=== PATIENT | female | born 1990 | race Caucasian/White ===

== ENCOUNTER 2020-04-06 14:00 | Inpatient (IN) | payer OTHER, SELFPAY ==
[2020-04-06] VITALS (20 sets, daily range): BP systolic 104–155; BP diastolic 49–93; PULSE 50–71; RESP 16–18; TEMP 35.7–36.7; O2SAT 96–99; BMI 41.8
[2020-04-06 12:48] LABS: Hematocrit 37.9 % (37-47); Hemoglobin 12.6 g/dL (12.0-15.0); Mean Corp Hgb Conc 33.2 g/dL (32-36); Mean Corpuscular Hgb 30.2 pg (27.0-32.0); Mean Corpuscular Volume 90.9 fL (81-99); Mean Platelet Vol. 12.4 fl (6.2-12.0); Platelet Count 177 K/mm3 (150-450); RBC Distribution Width CV 13.6 % (11.6-14.6); RBC Distribution Width SD 45.6 fl (35.1-43.9); Red Blood Count 4.17 M/mm3 (4.2-5.4); White Blood Count 10.2 K/mm3 (4.4-11.0)
[2020-04-06 13:11] LABS: Protein, Urine (Random) 90.7 mg/dL (<11.9); Protein:Creat Ratio 1422 mg/g CRE (0-200)
[2020-04-06 13:13] LABS: AST(SGOT) 15 U/L (15-37); Alanine Aminotransfer ALT/SGPT 15 U/L (13-56); Creatinine, Serum 0.61 mg/dL (0.55-1.02); EST Glomerular Filtration Rate 122 mL/min (>60); Est Glom Filt Rate - Afr Amer 148 mL/min (>60); Estimated Creatinine Clearance 121.35 ml/min; Uric Acid 5.8 mg/dL (2.6-6.0)
[2020-04-06] MEDS: Lactated Ringers 1,000 ML 50 ML IV (14:45)
[2020-04-06] MEDS: Betamethasone/Betamethasone 30 MG/5 ML Vial 12 MG IM (15:04)
[2020-04-06 15:05] LABS: Group B Strep DNA By PCR POSITIVE (Negative); Probe Check PASS
[2020-04-06] MEDS: Oxytocin 30 units/NS 500 ml 30 UNITS/500 ML IV.SOLN IV (15:58)
[2020-04-06] MEDS: Lactated Ringers 500 ML 999 ML IV (16:10)
--- NOTE | 2020-04-06 16:40 | PCM.HP.OB ---
History Date of Admission: 05/04/20 History of this : This is a 29 year-old, G [], P [], at 36 weeks gestational age. Allergies doxycycline Allergy (Verified 04/06/20 12:30) Rash Sulfa (Sulfonamide Antibiotics) Adverse Reaction (Verified 04/06/20 12:30) PT UNSURE OF REACTION Home Medications: Home Medications Vits [Prenatabs FA ] 1 tab PO DAILY 04/06/20 Smoking Status: Former smoker Alcohol: None Substance Use Type: Anxiety Medications, Sleep Aides Number of Fetus(es): 1 NST - FHR Rate Baby A Baseline: 125 Variability:: Minimal, Moderate Decelerations:: Variable, Prolonged Uterine Activity:: Irregular History Past Pregnancies: Past Pregnancies Delivery Date Name GA/ Weeks Outcome Route Wt Infant Sex Labor Length Anesthesia Delivery Location Provider FOB Labs: See [facility] H&P Physical Exam Vitals: Vital Signs Temp Pulse BP Pulse Ox 98.0 F 63 132/74 H 98 04/06/20 16:00 04/06/20 16:00 04/06/20 16:00 04/06/20 12:32 General: Alert, Oriented x3 Abdomen: Soft, Non Tender, Non-Distended, Gravid Extremities:: No tenderness/swelling Neurological: Cranial nerves II-XII grossly intact STUDIO MODEL: Normal external genitalia Estimated gestational size: Small for gestational age Presentation: Cephalic Cervix Dilation (cm): 4 Station: -2 Effacement (%): 70 Assessment/Plan This is a 29 year-old, , at 36 weeks gestational age. Admit to L&D Non reassuring heart tracing - patient was initially admitted for induction of labor. Pitocin was started and patient had another prolonged deceleration followed by an additional deceleration. Patient has had 2 prolonged decelerations and other decelerations that are either late or variable. Discussed R/B/A of MOD and recommend a primary as fetus is not tolerating labor. All questions answered and patient agrees to proceed with primary . GBS positive COVID negative
[2020-04-06] MEDS: Sodium Citrate/Citric Acid 30 ML UDC PO (16:44)
[2020-04-06] MEDS: Cefazolin 2 GM in 0.9% Normal Saline 100 ML IV (16:50)
--- NOTE | 2020-04-06 17:58 | OP.PCM_ITS ---
Report of Operation Date of Procedure: 04/06/20 Surgery/Procedure Performed:: Primary low transverse section Description of Surgical Findings:: Normal maternal uterus & adnexa international sourcing manager: Virginia Cates Delivery Classification: ARBEN Final CRYS: 05/04/20 Gestational age: 36 Weeks and 0 Days Type of Anesthesia:: Spinal Date of Procedure: 04/06/20 Pre-Operative Diagnosis: (1) Inability of fetus to tolerate labor (2) Small for gestational age Post-Operative Diagnosis: Same Indications: See H&P Indications for : Nonreassuring Status Description of Procedure: Patient taken to OR where spinal anesthesia was placed. She was prepped and draped in the normal sterile fashion in a dorsal supine position with a leftward tilt. After ensuring adequacy of anesthesia the Pfannensteil skin incision was made and carried through to the underlying fascia with a scalpel. The fascia was incised in the midline and carried laterally with the Bills scissors. The rectus muscles were in the midline and the peritoneum was entered bluntly. The bladder flap was dissected down carefully with the Metzenbaum scissors and blunt dissection. The uterus was incised in a transverse fashion and then incision extended with cephalocaudad traction. The fetus was vertex and the head was elevated to the uterine incision. With fundal pressure the head delivered. head was gently guided to allow delivery of anterior and posterior shoulders. No excess traction placed on head. Body delivered and 3VC clamped & cut in slightly delayed fashion. Then the was handed off to the waiting RN. The placenta was delivered with gentle traction and fundal massage and the uterus was exteriorized and cleared of all clots and debris. The uterine incision was closed with 1 vicryl suture in a running locked fashion. The bovie was used to further obtain further hemostasis of the uterine incision. A second imbricating layer of monocryl was placed. The uterus was returned to the peritoneal cavity. The pelvis was irrigated & then cleared of all clots and debris. The uterine incision was reexamined and found to be hemostatic. Some lucas was placed over the uterine incision due to the denuded areas. The fascia was closed with looped PDS suture in a running standard fashion. The subcutaneous tissue was examined & any bleeding bovie cauterized. The subcutaneous tissue was reapproximated with plain gut suture. The skin was closed in a subcuticular fashion by the HEMATOLOGY ONCOLOGY CONSULTANT with me present in the labor and delivery suite. I performed the remainder of the procedure w/ assistance. Amniotic Membrane Rupture Type: Artificial Amniotic Fluid Description: Clear Placenta Disposition: [facility] Drain: Perkins to straight drain Fluids Replaced: 1,000ml Cord Entanglement: Around neck x 1, loose Cord Vessel Description: 2 Vessels - cord was thin with a tight knot Esitmated Blood Loss (ml): 750ml Gender: Male - Klein (1 minute): 8 (5 minute): 9 Delayed cord clamping: Yes Antibiotic Given: Ancef 2 grams IV x1 Complications: None - Admit VTE Documentation VTE Present on Admission: No VTE Mechan Device Prophylaxis: SCD's VTE Pharm Prophylaxis ordered?: Yes
[2020-04-06] MEDS: Oxytocin 30 units/NS 500 ml 30 UNITS/500 ML IV.SOLN 167 UNITS IV (18:15)
[2020-04-06] MEDS: Lactated Ringers 1,000 ML 100 ML IV (21:32)
[2020-04-07] VITALS (13 sets, daily range): BP systolic 119–137; BP diastolic 67–85; PULSE 50–108; RESP 14–16; TEMP 35.9–37.1; O2SAT 96–99
[2020-04-07] MEDS: Acetaminophen 500 MG Tablet 1000 MG PO ×4 (00:27→17:52)
[2020-04-07] MEDS: Ketorolac 30 MG/ML Syringe IV ×4 (00:28→17:52)
[2020-04-07] MEDS: Enoxaparin 40 MG/0.4 ML Syringe SC (05:24)
[2020-04-07 05:51] LABS: Hematocrit 34.6 % (37-47); Hemoglobin 11.5 g/dL (12.0-15.0); Mean Corp Hgb Conc 33.2 g/dL (32-36); Mean Corpuscular Hgb 30.7 pg (27.0-32.0); Mean Corpuscular Volume 92.5 fL (81-99); Mean Platelet Vol. 12.6 fl (6.2-12.0); Platelet Count 166 K/mm3 (150-450); RBC Distribution Width CV 13.5 % (11.6-14.6); RBC Distribution Width SD 45.7 fl (35.1-43.9); Red Blood Count 3.74 M/mm3 (4.2-5.4); White Blood Count 13.8 K/mm3 (4.4-11.0)
--- NOTE | 2020-04-07 08:53 | PCM.PN.OB ---
Subjective: pain well controlled, average lochia. No N/V. Ambulating and urinating w/o difficulty - Physical Exam Vitals/I&O's: Vital Signs Temp Pulse Resp BP Pulse Ox 97.0 F L 50 L 16 119/68 99 04/07/20 07:48 04/07/20 07:48 04/07/20 07:48 04/07/20 07:48 04/07/20 07:48 Oxygen Delivery Method Room Air Weight: 114 kg Body Mass Index (BMI) 41.8 Intake and Output for Last 24 Hours 04/05/20 04/06/20 04/07/20 23:59 23:59 23:59 Intake Total 2419.30 / 2419.30 2300 / 2300 Output Total 550 / 550 650 / 650 Balance 1869.30 / 1869.30 1650 / 1650 General: Alert, Cooperative, No apparent distress Abdomen: Soft, Tender - appropriately Skin: Incision - bandage is clean, dry and intact Microbiology Past 72 Hours 04/06/20 15:05 Mucosa - Nose - Final Laboratory Results 04/06/20 12:38: WBC 10.2, RBC 4.17 L, Hgb 12.6, Hct 37.9, MCV 90.9, MCH 30.2, MCHC 33.2, RDW Std Deviation 45.6 H, RDW Coeff of Keyla 13.6, Plt Count 177, MPV 12.4 H 04/06/20 12:38: Creatinine 0.61, Estim Creat Clear Calc 121.35, Est GFR (MDRD) Af Amer 148, Est GFR (MDRD) Non-Af 122, Uric Acid 5.8, AST 15, ALT 15 04/06/20 12:55: U Random Total Protein 90.7 H, Urine Creatinine 63.80, Protein/Creatinin Ratio 1422 H 04/06/20 13:35: Group B Strep DNA POSITIVE H, Specimen Comment Not Reportable 04/06/20 14:00: Blood Type O NEGATIVE, Antibody Screen TNP 04/06/20 14:00: Antibody Screen NEGATIVE 04/06/20 23:40: Screen NEGATIVE, Baby's Blood Type A POSITIVE, Baby's AMARJIT NEGATIVE 04/07/20 05:30: WBC 13.8 H, RBC 3.74 L, Hgb 11.5 L, Hct 34.6 L, MCV 92.5, MCH 30.7, MCHC 33.2, RDW Std Deviation 45.7 H, RDW Coeff of Keyla 13.5, Plt Count 166, MPV 12.6 H Current Medications Acetaminophen (Acetaminophen 500 Mg Tablet) 1,000 mg PO Q6 [facility] Last Admin: 04/07/20 06:38 Dose: 1,000 mg Documented by: Bisacodyl (Bisacodyl 10 Mg Suppository) 10 mg RECTAL UD PRN PRN Reason: If no BM Diphenhydramine HCl (Diphenhydramine 25 Mg Capsule) 25 mg PO Q6H PRN PRN PRN Reason: ITCHING Stop: 04/07/20 18:02 Enoxaparin Sodium (Enoxaparin 40 Mg/0.4 Ml Syringe) 40 mg SC DAILY [facility] Last Admin: 04/07/20 05:24 Dose: 40 mg Documented by: Hydrocortisone (Hydrocortisone 2.5% Crm) 1 applic TOPICAL TID PRN PRN; Protocol PRN Reason: Discomfort Lactated Ringer's () 1,000 mls @ 100 mls/hr IV .Q10H [facility] Last Admin: 04/07/20 06:19 Dose: Not Given Documented by: Ibuprofen (Ibuprofen 600 Mg Tablet) 600 mg PO Q6 [facility] Ketorolac Tromethamine (Ketorolac 30 Mg/Ml Syringe) 30 mg IV Q6 [facility] Stop: 04/07/20 18:01 Last Admin: 04/07/20 06:37 Dose: 30 mg Documented by: Methylergonovine Maleate (Methylergonovine 0.2 Mg/Ml Ampul) 0.2 mg IM X1 PRN PRN Reason: Uterine Atony Nalbuphine HCl (Nalbuphine 10 Mg/Ml Ampul) 5 mg IV Q3H PRN PRN PRN Reason: ITCHING Stop: 04/07/20 18:02 Naloxone HCl (Naloxone 0.4 Mg/Ml Syringe) 0.02 mg IV Q1M PRN PRN Reason: RR <10 and pt unresponsive Ondansetron HCl (Ondansetron 4 Mg/2 Ml Vial) 4 mg IV Q4H PRN PRN PRN Reason: Nausea Oxycodone HCl (Oxycodone 5 Mg Tablet) 5 - 10 mg PO Q4H PRN PRN PRN Reason: Pain Score 4-10 Prochlorperazine Edisylate (Prochlorperazine 10 Mg/2 Ml Vial) 10 mg IV Q6H PRN PRN PRN Reason: NAUSEA Senna/Docusate Sodium (Senna/Docusate Sodium 1 Tablet) 0 tablet PO DAILY [facility] Simethicone (Simethicone 80 Mg Tablet) 80 mg PO PCHS PRN PRN Reason: Indigestion/stomach pain Sodium Chloride (0.9% Saline Lock 10 Ml Syringe) 5 - 15 ml IV UD PRN PRN Reason: SALINE FLUSH Medical Necessity - Tobacco Use Smoking Status: Former smoker Assessment/Plan POD#1 s/p primary c/s for intolerance of labor, prolonged decelerations, IUGR in SCN, doing well patient w/ mild preeclampsia, BP stable, monitor for now CBC stable, minimal drop in H/H appropriate for blood loss during surgery
[2020-04-07] MEDS: Senna/Docusate Sodium 1 Tablet PO (10:12)
[2020-04-07] MEDS: 0.9% Saline Lock 10 ML Syringe IV ×2 (11:49→17:52)
--- NOTE | 2020-04-07 20:14 | NURSING ---
pt and significant other nurses at [facility], CPR certified, declined refresher course using Ipad
[2020-04-08] MEDS: Ibuprofen 600 MG Tablet PO ×4 (00:28→18:36)
[2020-04-08] MEDS: Acetaminophen 500 MG Tablet 1000 MG PO ×4 (00:29→18:34)
[2020-04-08 00:31] VITALS: BP 124/70; PULSE 76; RESP 16; TEMP 37.4
[2020-04-08 06:40] VITALS: BP 132/71; PULSE 68; RESP 16; TEMP 37.3
[2020-04-08 10:22] VITALS: BP 143/80; PULSE 66; RESP 14; TEMP 36.6
[2020-04-08] MEDS: Senna/Docusate Sodium 1 Tablet PO (10:26)
[2020-04-08] MEDS: Enoxaparin 40 MG/0.4 ML Syringe SC (10:27)
--- NOTE | 2020-04-08 11:40 | PCM.PN.OB ---
Subjective: pain well controlled, average lochia. + Bm. Kelle. regular diet - Physical Exam Vitals/I&O's: Vital Signs Temp Pulse Resp BP Pulse Ox 97.9 F 66 14 143/80 H 96 04/08/20 10:22 04/08/20 10:22 04/08/20 10:22 04/08/20 10:22 04/07/20 19:45 Oxygen Delivery Method Room Air Weight: 114 kg Body Mass Index (BMI) 41.8 Intake and Output for Last 24 Hours 04/06/20 04/07/20 04/08/20 23:59 23:59 23:59 Intake Total 2419.30 / 2419.30 2798.33 / 2798.33 Output Total 550 / 550 900 / 900 Balance 1869.30 / 1869.30 1898.33 / 1898.33 General: Alert, Cooperative, No apparent distress Abdomen: Soft, Non-Distended, Distended - mildly, softly, Tender - appropriately Extremities: Edema - 1+ Skin: Incision - bandage clean, dry and intact Microbiology Past 72 Hours 04/06/20 15:05 Mucosa - Nose - Final Current Medications Acetaminophen (Acetaminophen 500 Mg Tablet) 1,000 mg PO Q6 [facility] Last Admin: 04/08/20 06:39 Dose: 1,000 mg Documented by: Bisacodyl (Bisacodyl 10 Mg Suppository) 10 mg RECTAL UD PRN PRN Reason: If no BM Enoxaparin Sodium (Enoxaparin 40 Mg/0.4 Ml Syringe) 40 mg SC DAILY [facility] Last Admin: 04/08/20 10:27 Dose: 40 mg Documented by: Hydrocortisone (Hydrocortisone 2.5% Crm) 1 applic TOPICAL TID PRN PRN; Protocol PRN Reason: Discomfort Ibuprofen (Ibuprofen 600 Mg Tablet) 600 mg PO Q6 [facility] Last Admin: 04/08/20 06:38 Dose: 600 mg Documented by: Methylergonovine Maleate (Methylergonovine 0.2 Mg/Ml Ampul) 0.2 mg IM X1 PRN PRN Reason: Uterine Atony Naloxone HCl (Naloxone 0.4 Mg/Ml Syringe) 0.02 mg IV Q1M PRN PRN Reason: RR <10 and pt unresponsive Ondansetron HCl (Ondansetron 4 Mg/2 Ml Vial) 4 mg IV Q4H PRN PRN PRN Reason: Nausea Oxycodone HCl (Oxycodone 5 Mg Tablet) 5 - 10 mg PO Q4H PRN PRN PRN Reason: Pain Score 4-10 Prochlorperazine Edisylate (Prochlorperazine 10 Mg/2 Ml Vial) 10 mg IV Q6H PRN PRN PRN Reason: NAUSEA Senna/Docusate Sodium (Senna/Docusate Sodium 1 Tablet) 0 tablet PO DAILY [facility] Last Admin: 04/08/20 10:26 Dose: 1 tablet Documented by: Simethicone (Simethicone 80 Mg Tablet) 80 mg PO PCHS PRN PRN Reason: Indigestion/stomach pain Sodium Chloride (0.9% Saline Lock 10 Ml Syringe) 5 - 15 ml IV UD PRN PRN Reason: SALINE FLUSH Last Admin: 04/07/20 17:52 Dose: 10 ml Documented by: Medical Necessity - Tobacco Use Smoking Status: Former smoker Assessment/Plan POD#2 routine care average lochia monitor BPs in SCN and doing well
[2020-04-08 16:00] VITALS: BP 130/66; PULSE 70; RESP 14; TEMP 36.4
[2020-04-08 19:50] VITALS: BP 147/85; PULSE 69; RESP 16; TEMP 36.3; O2SAT 99
[2020-04-09] MEDS: Acetaminophen 500 MG Tablet 1000 MG PO ×4 (00:37→18:41)
[2020-04-09] MEDS: Ibuprofen 600 MG Tablet PO ×4 (00:37→18:41)
--- NOTE | 2020-04-09 01:59 | NURSING ---
Daylight saving times end
[2020-04-09 02:15] VITALS: BP 143/89; PULSE 55; RESP 16; TEMP 36.4; O2SAT 97
[2020-04-09 07:20] VITALS: BP 154/91; PULSE 54; RESP 18; TEMP 36.2
[2020-04-09] MEDS: Senna/Docusate Sodium 1 Tablet PO (10:01)
[2020-04-09] MEDS: Enoxaparin 40 MG/0.4 ML Syringe SC (10:01)
[2020-04-09 14:00] VITALS: BP 148/72; PULSE 71; RESP 18; TEMP 36.3
--- NOTE | 2020-04-09 15:00 | PCM.PN.OB ---
Subjective: Pain well controlled, average lochia, no N/V. +Flatus, +BM - Physical Exam Vitals/I&O's: Vital Signs Temp Pulse Resp BP Pulse Ox 97.3 F L 71 18 148/72 H 97 04/09/20 14:00 04/09/20 14:00 04/09/20 14:00 04/09/20 14:00 04/09/20 02:15 Oxygen Delivery Method Room Air Weight: 114 kg Body Mass Index (BMI) 41.8 Intake and Output for Last 24 Hours 04/07/20 04/08/20 04/09/20 23:59 23:59 22:59 Intake Total 2798.33 / 2798.33 Output Total 900 / 900 Balance 1898.33 / 1898.33 General: Alert, Cooperative, No apparent distress Abdomen: Soft, Non-Distended, Tender - appropriately Extremities: Edema - 1+ Skin: Incision - bandage clean, dry and intact Microbiology Past 72 Hours 04/06/20 13:35 Genital vaginal Group B Streptococcus Culture - Preliminary Streptococcus agalactiae (B) 04/06/20 15:05 Mucosa - Nose - Final Current Medications Acetaminophen (Acetaminophen 500 Mg Tablet) 1,000 mg PO Q6 [facility] Last Admin: 04/09/20 12:28 Dose: 1,000 mg Documented by: Bisacodyl (Bisacodyl 10 Mg Suppository) 10 mg RECTAL UD PRN PRN Reason: If no BM Enoxaparin Sodium (Enoxaparin 40 Mg/0.4 Ml Syringe) 40 mg SC DAILY [facility] Last Admin: 04/09/20 10:01 Dose: 40 mg Documented by: Hydrocortisone (Hydrocortisone 2.5% Crm) 1 applic TOPICAL TID PRN PRN; Protocol PRN Reason: Discomfort Ibuprofen (Ibuprofen 600 Mg Tablet) 600 mg PO Q6 [facility] Last Admin: 04/09/20 12:29 Dose: 600 mg Documented by: Methylergonovine Maleate (Methylergonovine 0.2 Mg/Ml Ampul) 0.2 mg IM X1 PRN PRN Reason: Uterine Atony Naloxone HCl (Naloxone 0.4 Mg/Ml Syringe) 0.02 mg IV Q1M PRN PRN Reason: RR <10 and pt unresponsive Ondansetron HCl (Ondansetron 4 Mg/2 Ml Vial) 4 mg IV Q4H PRN PRN PRN Reason: Nausea Oxycodone HCl (Oxycodone 5 Mg Tablet) 5 - 10 mg PO Q4H PRN PRN PRN Reason: Pain Score 4-10 Prochlorperazine Edisylate (Prochlorperazine 10 Mg/2 Ml Vial) 10 mg IV Q6H PRN PRN PRN Reason: NAUSEA Senna/Docusate Sodium (Senna/Docusate Sodium 1 Tablet) 0 tablet PO DAILY [facility] Last Admin: 04/09/20 10:01 Dose: 1 tablet Documented by: Simethicone (Simethicone 80 Mg Tablet) 80 mg PO PCHS PRN PRN Reason: Indigestion/stomach pain Sodium Chloride (0.9% Saline Lock 10 Ml Syringe) 5 - 15 ml IV UD PRN PRN Reason: SALINE FLUSH Last Admin: 04/07/20 17:52 Dose: 10 ml Documented by: Medical Necessity - Tobacco Use Smoking Status: Former smoker Assessment/Plan POD#3 routine care in SCN and doing well cont. to monitor BP
[2020-04-09 21:00] VITALS: BP 133/69; PULSE 69; RESP 14; TEMP 36.8; O2SAT 96
[2020-04-09 23:05] VITALS: BP 144/63
[2020-04-10] MEDS: Ibuprofen 600 MG Tablet PO ×3 (01:34→13:21)
[2020-04-10] MEDS: Acetaminophen 500 MG Tablet 1000 MG PO ×3 (01:34→13:20)
[2020-04-10 01:38] VITALS: BP 148/85; PULSE 57; RESP 18; TEMP 36.6; O2SAT 97
[2020-04-10 07:55] VITALS: BP 179/84; PULSE 84; RESP 16; TEMP 36.5; O2SAT 100
[2020-04-10 08:00] VITALS: BP 136/75
[2020-04-10] MEDS: Enoxaparin 40 MG/0.4 ML Syringe SC (10:38)
[2020-04-10] MEDS: Senna/Docusate Sodium 1 Tablet PO (10:38)
[2020-04-10 13:45] VITALS: BP 141/81; PULSE 81; RESP 16; TEMP 36.5
--- NOTE | 2020-04-10 17:39 | PCM.PN.OB ---
Subjective: Doing well per patient and nursing staff. Ambulating and taking PO without difficulty. Voiding and passing flatus. Lochia normal. Pumping breastmilk. Baby in SCN and being transferred to [facility] for low PLTs. Denies any headaches, visual changes, chest pain, SOB, or increased pain. - Physical Exam Vitals/I&O's: Vital Signs Temp Pulse Resp BP Pulse Ox 97.7 F L 81 16 141/81 H 100 04/10/20 13:45 04/10/20 13:45 04/10/20 13:45 04/10/20 13:45 04/10/20 07:55 Oxygen Delivery Method Room Air Weight: 251 lb 5.231 oz Body Mass Index (BMI) 41.8 General: Alert, Oriented x3, Cooperative HEENT: Atraumatic, Normocephalic Neck: Trachea Midline Lungs: Clear to auscultation, Normal air movement, No rhonchi, No wheeze Cardiovascular: Regular rate, Regular Rhythm Abdomen: Bowel Sounds Present, Soft Extremities: No edema Neurological: Deep Tendon Reflexes 2+/4 and Symmetrical Psych/Mental Status: Normal Affect, Appropriate, Anxious - tearful as baby is being transferred. Microbiology Past 72 Hours 04/06/20 13:35 Genital vaginal Group B Streptococcus Culture - Preliminary Streptococcus agalactiae (B) Current Medications Acetaminophen (Acetaminophen 500 Mg Tablet) 1,000 mg PO Q6 [facility] Last Admin: 04/10/20 13:20 Dose: 1,000 mg Documented by: Bisacodyl (Bisacodyl 10 Mg Suppository) 10 mg RECTAL UD PRN PRN Reason: If no BM Enoxaparin Sodium (Enoxaparin 40 Mg/0.4 Ml Syringe) 40 mg SC DAILY [facility] Last Admin: 04/10/20 10:38 Dose: 40 mg Documented by: Hydrocortisone (Hydrocortisone 2.5% Crm) 1 applic TOPICAL TID PRN PRN; Protocol PRN Reason: Discomfort Ibuprofen (Ibuprofen 600 Mg Tablet) 600 mg PO Q6 [facility] Last Admin: 04/10/20 13:21 Dose: 600 mg Documented by: Methylergonovine Maleate (Methylergonovine 0.2 Mg/Ml Ampul) 0.2 mg IM X1 PRN PRN Reason: Uterine Atony Naloxone HCl (Naloxone 0.4 Mg/Ml Syringe) 0.02 mg IV Q1M PRN PRN Reason: RR <10 and pt unresponsive Ondansetron HCl (Ondansetron 4 Mg/2 Ml Vial) 4 mg IV Q4H PRN PRN PRN Reason: Nausea Oxycodone HCl (Oxycodone 5 Mg Tablet) 5 - 10 mg PO Q4H PRN PRN PRN Reason: Pain Score 4-10 Prochlorperazine Edisylate (Prochlorperazine 10 Mg/2 Ml Vial) 10 mg IV Q6H PRN PRN PRN Reason: NAUSEA Senna/Docusate Sodium (Senna/Docusate Sodium 1 Tablet) 0 tablet PO DAILY [facility] Last Admin: 04/10/20 10:38 Dose: 1 tablet Documented by: Simethicone (Simethicone 80 Mg Tablet) 80 mg PO PCHS PRN PRN Reason: Indigestion/stomach pain Sodium Chloride (0.9% Saline Lock 10 Ml Syringe) 5 - 15 ml IV UD PRN PRN Reason: SALINE FLUSH Last Admin: 04/07/20 17:52 Dose: 10 ml Documented by: Medical Necessity - Tobacco Use Smoking Status: Former smoker Assessment/Plan A:PPD #4 Primary Section Mild Preeclampsia P: 1) Discharge home 2) Reviewed mild BP elevation, consulted with and ok to follow up in 2 days. Preeclampsia symptoms reviewed and when to call. 3) Declines pain medication, will use ibuprofen and tylenol OTC. Will use stool softener she has at home, declines RX.
--- NOTE | 2020-04-10 17:40 | DCINST_ITS ---
Discharge Diet: No Restrictions Discharge Activity: May Not Drive - for 2 weeks or while taking narcotic pain meds., May Shower, May Take a Tub Bath - in 7 days. May resume sexual activity in: 4-6 weeks Weight Bearing Status: Full weight bearing Lifting Restrictions: 20 pounds Additional Activity Instructions:: Nothing in the vagina for 4-6 weeks. You may return to work/school in 6 weeks. Call your doctor if your incision/area has: Continuous Slow Oozing, Sudden Increased Bleeding, Increased Pain/ Swelling, Increased Redness, Foul Smelling Discharge Call your doctor if you observe: Fever of 101 or Higher Suture Line Care: Avoid Pulling/Pushing, Avoid Pinching/Bending Additional Instructions: If you experience any of the following, contact your healthcare provider. * Bleeding that soaks a pad every hour for 2 hours * Fever 100.4 or higher * Unrelieved incision or abdominal pain * Swelling, redness, discharge or bleeding from your incision or episiotomy site * Your incision begins to separate * Problems urinating (including inability to urinate or burning while urinating). * Visual changes * Severe headache * Flu-like symptoms * Pain or redness in one of both of your breasts * Pain, warmth, tenderness or swelling in your legs, especially the calf area * Frequent nausea and vomiting * Symptoms of depression or anxiety If you experience any of the following, call 911 or go to the nearest Emergency Room. * Chest pain * Problems breathing * Seizure activity * Partial or complete paralysis of a body part, slurred speech, weakness or drooping of the face, or a sudden inability to walk or hold your balance Allergies/Adverse Reactions: Allergies doxycycline Allergy (Verified 04/06/20 12:30) Rash Sulfa (Sulfonamide Antibiotics) Adverse Reaction (Verified 04/06/20 12:30) PT UNSURE OF REACTION Medications to take at Discharge Vits [Prenatabs FA ] 1 tab PO DAILY 04/06/20 Ibuprofen [Motrin] 600 mg PO Q6 tablet 04/10/20 Follow-Up: Call to make an appointment with your doctor for an incision check in 1-2 weeks. You will also need a 6 week post- follow up appointment. Test results from this visit will be discussed in further detail at your follow-up appointment, if applicable. Please Follow Up With: Priyanka Mitchell MD When: 04/12/20 for blood pressure visit with physician. Call to make appointment Primary Care Physician: Care Physician,No Primary [Primary Care Provider] -
--- NOTE | 2020-04-10 17:46 | PCM.DC.SUM ---
Discharge Date and Diagnosis Date of Admission: 05/04/20 Date of Discharge: 04/10/20 Hospital Course and Treatment Summary of Care Provided: The patient is a 29 year old F [Presented for Induction of labor at 36 weeks due to Non reassuring tracing with prolonged decelerations and IUGR. Primary section due to non reassuring status and prolonged decelerations. Mild preeclampsia. BP remained stable and no medication during hospital stay. Baby to special care nursing. Discharge home on PPD #4. ] - Physical Exam Vitals/I&O's: Vital Signs Temp Pulse Resp BP Pulse Ox 97.7 F L 81 16 141/81 H 100 04/10/20 13:45 04/10/20 13:45 04/10/20 13:45 04/10/20 13:45 04/10/20 07:55 Oxygen Delivery Method Room Air Weight: 251 lb 5.231 oz Body Mass Index (BMI) 41.8 Microbiology Past 72 Hours 04/06/20 13:35 Genital vaginal Group B Streptococcus Culture - Preliminary Streptococcus agalactiae (B) Current Medications Acetaminophen (Acetaminophen 500 Mg Tablet) 1,000 mg PO Q6 [facility] Last Admin: 04/10/20 13:20 Dose: 1,000 mg Documented by: Bisacodyl (Bisacodyl 10 Mg Suppository) 10 mg RECTAL UD PRN PRN Reason: If no BM Enoxaparin Sodium (Enoxaparin 40 Mg/0.4 Ml Syringe) 40 mg SC DAILY [facility] Last Admin: 04/10/20 10:38 Dose: 40 mg Documented by: Hydrocortisone (Hydrocortisone 2.5% Crm) 1 applic TOPICAL TID PRN PRN; Protocol PRN Reason: Discomfort Ibuprofen (Ibuprofen 600 Mg Tablet) 600 mg PO Q6 [facility] Last Admin: 04/10/20 13:21 Dose: 600 mg Documented by: Methylergonovine Maleate (Methylergonovine 0.2 Mg/Ml Ampul) 0.2 mg IM X1 PRN PRN Reason: Uterine Atony Naloxone HCl (Naloxone 0.4 Mg/Ml Syringe) 0.02 mg IV Q1M PRN PRN Reason: RR <10 and pt unresponsive Ondansetron HCl (Ondansetron 4 Mg/2 Ml Vial) 4 mg IV Q4H PRN PRN PRN Reason: Nausea Oxycodone HCl (Oxycodone 5 Mg Tablet) 5 - 10 mg PO Q4H PRN PRN PRN Reason: Pain Score 4-10 Prochlorperazine Edisylate (Prochlorperazine 10 Mg/2 Ml Vial) 10 mg IV Q6H PRN PRN PRN Reason: NAUSEA Senna/Docusate Sodium (Senna/Docusate Sodium 1 Tablet) 0 tablet PO DAILY [facility] Last Admin: 04/10/20 10:38 Dose: 1 tablet Documented by: Simethicone (Simethicone 80 Mg Tablet) 80 mg PO [facility] PRN PRN Reason: Indigestion/stomach pain Sodium Chloride (0.9% Saline Lock 10 Ml Syringe) 5 - 15 ml IV UD PRN PRN Reason: SALINE FLUSH Last Admin: 04/07/20 17:52 Dose: 10 ml Documented by: Discharge Diet: No Restrictions Discharge Activity: May Not Drive - for 2 weeks or while taking narcotic pain meds., May Shower, May Take a Tub Bath - in 7 days. May resume sexual activity in: 4-6 weeks Weight Bearing Status: Full weight bearing Additional Activity Instructions:: Nothing in the vagina for 4-6 weeks. You may return to work/school in 6 weeks. Call your doctor if your incision/area has: Continuous Slow Oozing, Sudden Increased Bleeding, Increased Pain/ Swelling, Increased Redness, Foul Smelling Discharge Call your doctor if you observe: Fever of 101 or Higher Suture Line Care: Avoid Pulling/Pushing, Avoid Pinching/Bending Home Medications: Medications to take at Discharge Vits [Prenatabs FA ] 1 tab PO DAILY 04/06/20 Ibuprofen [Motrin] 600 mg PO Q6 tablet 04/10/20 Primary Care Physician: Care Physician,No Primary [Primary Care Provider] - Please Follow Up With: Priyanka Mitchell MD When: 04/12/20 for blood pressure visit with physician. Call to make appointment Medical Necessity - Tobacco Use Smoking Status: Former smoker Meaningful Use Info Meaningful Use Diagnoses (Choose all that apply): None applicable
== END 2020-04-10 18:05 | disposition home or self-care (01) | DRG 787 ==
LOC: OBT 14:03 → WP 14:03
PROVIDERS: Admitting Provider Obstetrics & Gynecology; Visit Provider Obstetrics & Gynecology
DX: O76 Abnormality in fetal heart rate and rhythm complicating labor and delivery (principal); O98.82 Other maternal infectious and parasitic diseases complicating childbirth; B95.1 Streptococcus, group B, as the cause of diseases classified elsewhere; O69.81X0 Labor and delivery complicated by cord around neck, without compression, not applicable or unspecified; O36.5930 Maternal care for other known or suspected poor fetal growth, third trimester, not applicable or unspecified; O14.04 Mild to moderate pre-eclampsia, complicating childbirth; Z3A.36 36 weeks gestation of pregnancy; Z37.0 Single live birth
CPT/HCPCS: 59025; 59050; 82565; 82570; 84156; 84450; 84460; 84550; 85027; 85461; 86850; 86900; 86901; 87077; 87081; 87186; 87426; 87653; 90384; 99218; J7120; A4216; G0378; J0702; J2790

== ENCOUNTER 2020-09-11 08:37 | Outpatient (RCR) | payer OTHER, SELFPAY ==
[2020-04-06 12:29] VITALS: BMI 41.8
== END 2020-10-06 23:59 ==
LOC: EMPH 08:37
PROVIDERS: Visit Provider Family Medicine Geriatric Medicine
DX: Z03.818 Encounter for observation for suspected exposure to other biological agents ruled out (principal)
CPT/HCPCS: 87426